=== PATIENT | female | born 1955 | race Caucasian/White ===

== ENCOUNTER 2022-06-26 17:27 | Emergency (ER) | payer MEDICARE, BC ==
[2022-06-26 17:55] VITALS: BP 126/61; PULSE 80
== END 2022-06-26 18:57 | disposition home or self-care (01) ==
LOC: LL.ED 17:27
DX: M25.531 Pain in right wrist (principal); M25.551 Pain in right hip; I10 Essential (primary) hypertension; Z88.1 Allergy status to other antibiotic agents; Z88.8 Allergy status to other drugs, medicaments and biological substances; Z88.5 Allergy status to narcotic agent; Z88.2 Allergy status to sulfonamides; Z79.899 Other long term (current) drug therapy; Z79.01 Long term (current) use of anticoagulants; Z86.73 Personal history of transient ischemic attack (TIA), and cerebral infarction without residual deficits; Z90.49 Acquired absence of other specified parts of digestive tract; W18.39XA Other fall on same level, initial encounter
CPT/HCPCS: 73110-RT; 99283; 99284

== ENCOUNTER 2024-11-04 17:40 | Observation (INO) | payer MEDICARE ==
[2024-11-04] MEDS ORDERED: LEVOCETIRIZINE DIHYDROCHLORIDE PO SCH (18:00)
[2024-11-04 18:51] LABS: BASOPHILS ABSOLUTE AUTO 0.04 K/uL (0.00-0.20); BASOPHILS PERCENT AUTO 0.4 % (0.0-2.0); EOSINOPHILS ABSOLUTE AUTO 0.27 K/uL (0.00-0.50); EOSINOPHILS PERCENT AUTO 2.9 % (0.0-5.0); HEMATOCRIT 40.5 % (34.0-46.0); HEMOGLOBIN 12.8 g/dL (11.7-15.5); IMMATURE GRAN ABSOLUTE AUTO 0.05 10^3/uL (0.00-0.50); IMMATURE GRAN PERCENT AUTO 0.5 % (0.0-5.0); LYMPHOCYTES ABSOLUTE AUTO 1.95 K/uL (0.50-3.50); LYMPHOCYTES PERCENT AUTO 21.1 % (10.0-50.0); MEAN CORPUSCULAR HEMOGLOBIN 29.8 pg (28.2-33.3); MEAN CORPUSCULAR HGB CONC 31.6 g/dL (31.7-36.0); MEAN CORPUSCULAR VOLUME 94.2 fL (84.0-98.0); MONOCYTES ABSOLUTE AUTO 0.58 K/uL (0.00-1.00); MONOCYTES PERCENT AUTO 6.3 % (2.0-14.0); NEUTROPHILS ABSOLUTE AUTO 6.37 K/uL (1.40-7.00); NEUTROPHILS PERCENT AUTO 68.8 % (45.0-80.0); PLATELET COUNT,PLT 486 K/uL (150-350); WHITE BLOOD CELL COUNT,WBC 9.3 K/uL (4.0-10.2)
[2024-11-04 19:11] LABS: INR 1.1 (0.9-1.1); PROTHROMBIN TIME 10.8 SEC (9.0-11.1)
[2024-11-04 19:16] LABS: LACTIC ACID 1.5 mmol/L (0.4-2.0)
[2024-11-04 19:25] LABS: ALANINE AMINOTRANSFERASE,ALT 21 U/L (12-78); ALBUMIN 3.4 g/dL (3.4-5.0); ALKALINE PHOSPHATASE 132 IU/L (46-116); ASPARTATE AMNIOTRANSFERASE,AST 20 U/L (15-37); BILIRUBIN TOTAL 0.2 mg/dL (0.2-1.0); BLOOD UREA NITROGEN,BUN 20 mg/dL (7-18); CALCIUM 10.3 mg/dL (8.5-10.1); CARBON DIOXIDE,CO2 32.8 mmol/L (21.0-32.0); CHLORIDE,CL 100 mmol/L (98-107); CREATININE 1.08 mg/dL (0.51-1.17); GLUCOSE RANDOM 163 mg/dL (70-99); POTASSIUM,K 4.1 mmol/L (3.5-5.1); PRO B-TYPE NATRIUR PEPT,BNPPRO 111 pg/mL (0-125); PROTEIN TOTAL,TP 7.9 g/dL (6.4-8.2); SODIUM,NA 140 mmol/L (136-145)
[2024-11-04 19:28] LABS: ANION GAP 11.3 meq/L (7-15); ESTIMATED GFR 55 mL/min (>=60)
[2024-11-04] MEDS ORDERED: Clobetasol 0.05% Crm 15 GM Tube TOP PRN (20:16)
[2024-11-04] MEDS ORDERED: Non-Formulary Medication 1 Each (Estradiol [Estrace 0.01% Vaginal Crm] 42.5 GM Tube) PRN (20:16)
[2024-11-04] MEDS ORDERED: Non-Formulary Medication 1 Each (Methocarbamol 750 MG Tablet) PO PRN (20:16)
[2024-11-04] MEDS: Apixaban 5 MG Tab PO SCH (21:36)
[2024-11-04] MEDS: Spironolactone 25 MG Tab PO SCH (21:36)
[2024-11-04] MEDS: Montelukast 10 MG Tab PO SCH (21:36)
[2024-11-04] MEDS: Pregabalin 25 MG Cap PO SCH (21:36)
[2024-11-04] MEDS: Acetaminophen 325 MG Tab PO PRN (21:41)
[2024-11-04] MEDS: oxyCODONE 5 MG Tab ONE (21:49)
[2024-11-04] MEDS: Oxybutynin 5 MG Tab ONE (21:49)
[2024-11-04] MEDS: traMADol 50 MG Tab PO PRN (21:50)
[2024-11-04] MEDS: Melatonin 3 MG Tab ONE (21:56)
[2024-11-04] MEDS: Sennosides/Docusate Sodium 50-8.6 MG Tab ONE (22:06)
[2024-11-04] MEDS: Simethicone 125 MG Tab.Chew ONE (22:06)
[2024-11-04] MEDS: Simethicone 125 MG Tab.Chew PO SCH (22:49)
[2024-11-05] MEDS: Fluconazole 100 MG Tab PO SCH (07:40)
[2024-11-05] MEDS: Oxybutynin 5 MG Tab.ER PO SCH (07:40)
[2024-11-05] MEDS: Ascorbic Acid 500 MG Tab PO SCH (07:41)
[2024-11-05] MEDS: Sennosides/Docusate Sodium 50-8.6 MG Tab PO SCH (07:42)
[2024-11-05] MEDS: Polyethylene Glycol 3350 Powder 17 GM Packet PO SCH (07:42)
[2024-11-05] MEDS: Verapamil 180 MG Tab.ER PO SCH ×2 (07:43→19:48)
[2024-11-05] MEDS: Multivitamin Tab PO SCH (07:43)
[2024-11-05] MEDS: Furosemide 20 MG Tab PO SCH (07:43)
[2024-11-05] MEDS: Rosuvastatin 10 MG Tab PO SCH (07:44)
[2024-11-05] MEDS: Albuterol/Ipratropium 3.0-0.5 MG/3 ML Neb Soln NEB SCH (07:44)
[2024-11-05] MEDS: Lactobacillus Rhamnosus GG (Probiotic) Cap PO SCH (07:44)
[2024-11-05] MEDS: Lidocaine 4% 1 each Patch TOP SCH (07:44)
[2024-11-05] MEDS ORDERED: Non-Formulary Medication 1 Each (Azelastine Hcl [Azelastine Hcl] 137 MCG/0.137 ML Spray.Pu NASBOTH SCH (08:00)
[2024-11-05] MEDS ORDERED: Simethicone 125 MG Tab.Chew PO SCH (08:00)
[2024-11-05] MEDS ORDERED: Non-Formulary Medication 1 Each (Biotin [Biotin] 1 MG Tablet) PO SCH (08:00)
[2024-11-05] MEDS ORDERED: Non-Formulary Medication 1 Each (Esomeprazole Magnesium [Esomeprazole Magnesium] 40 MG Cap PO SCH (08:00)
[2024-11-05] MEDS: Docusate Sodium 100 MG Cap PO SCH (19:49)
[2024-11-05] MEDS: Melatonin 3 MG Tab PO SCH (19:49)
[2024-11-05] MEDS ORDERED: Non-Formulary Medication 1 Each (Melatonin [Melatonin] 10 MG Tablet) PO SCH (20:00)
[2024-11-06 09:41] VITALS: BP 122/62; PULSE 75
== END 2024-11-06 16:00 | disposition home or self-care (01) ==
LOC: LL.ED 17:40 → UNDOADMOB 19:10 → LL.MS 19:10 → UNDODISOB 11-06 16:00
PROVIDERS: ADMIT Physician Assistant; ATTEND Physician Assistant
DX: Z74.2 Need for assistance at home and no other household member able to render care (principal); Z98.1 Arthrodesis status; I10 Essential (primary) hypertension; E78.00 Pure hypercholesterolemia, unspecified; K21.9 Gastro-esophageal reflux disease without esophagitis; G89.29 Other chronic pain; Z79.899 Other long term (current) drug therapy; Z88.5 Allergy status to narcotic agent; Z88.8 Allergy status to other drugs, medicaments and biological substances
CPT/HCPCS: 36415; 80053; 83605; 83735; 83880; 85025; 85610; 99223; 99233; 99239; 99284; A9270-GY

== ENCOUNTER 2025-06-13 08:45 | Emergency (ER) | payer MEDICARE ==
[2025-06-13] MEDS ORDERED: Sodium Chloride 0.9% 10 ML Syringe FLUSH PRN (09:00)
[2025-06-13 09:35] LABS: BASOPHILS ABSOLUTE AUTO 0.03 K/uL (0.00-0.20); BASOPHILS PERCENT AUTO 0.4 % (0.0-2.0); EOSINOPHILS ABSOLUTE AUTO 0.09 K/uL (0.00-0.50); EOSINOPHILS PERCENT AUTO 1.2 % (0.0-5.0); IMMATURE GRAN ABSOLUTE AUTO 0.02 10^3/uL (0.00-0.04); IMMATURE GRAN PERCENT AUTO 0.3 % (0.0-0.4); LYMPHOCYTES ABSOLUTE AUTO 1.44 K/uL (0.50-3.50); LYMPHOCYTES PERCENT AUTO 19.7 % (10.0-50.0); MONOCYTES ABSOLUTE AUTO 0.39 K/uL (0.00-1.00); MONOCYTES PERCENT AUTO 5.3 % (2.0-14.0); NEUTROPHILS ABSOLUTE AUTO 5.34 K/uL (1.40-7.00); NEUTROPHILS PERCENT AUTO 73.1 % (45.0-80.0); PLATELET COUNT,PLT 214 K/uL (150-350); RED BLOOD CELL COUNT 5.27 M/uL (3.77-5.09); RED CELL DISTRIBUTION WIDTH 13.8 % (11.2-14.1); WHITE BLOOD CELL COUNT,WBC 7.3 K/uL (4.0-10.2)
[2025-06-13 10:02] LABS: ALANINE AMINOTRANSFERASE,ALT 26 U/L (12-78); ASPARTATE AMNIOTRANSFERASE,AST 19 U/L (15-37); BILIRUBIN TOTAL 0.3 mg/dL (0.2-1.0); BLOOD UREA NITROGEN,BUN 24 mg/dL (7-18); CARBON DIOXIDE,CO2 34.9 mmol/L (21.0-32.0); CHLORIDE,CL 101 mmol/L (98-107); CREATININE 1.10 mg/dL (0.51-1.17); ESTIMATED GFR 53 mL/min (>=60); GLUCOSE RANDOM 153 mg/dL (70-99); POTASSIUM,K 4.6 mmol/L (3.5-5.1); PROTEIN TOTAL,TP 7.4 g/dL (6.4-8.2); SODIUM,NA 140 mmol/L (136-145)
== END 2025-06-13 10:50 | disposition home or self-care (01) ==
LOC: LL.ED 08:45 → SUPCPDRO 08:45 → LL.ED 10:50
DX: S00.83XA Contusion of other part of head, initial encounter (principal); I10 Essential (primary) hypertension; E78.00 Pure hypercholesterolemia, unspecified; Z90.49 Acquired absence of other specified parts of digestive tract; Z90.710 Acquired absence of both cervix and uterus; Z88.1 Allergy status to other antibiotic agents; Z88.2 Allergy status to sulfonamides; Z88.5 Allergy status to narcotic agent; Z88.8 Allergy status to other drugs, medicaments and biological substances; Z79.01 Long term (current) use of anticoagulants; Z79.899 Other long term (current) drug therapy; W06.XXXA Fall from bed, initial encounter; Y92.019 Unspecified place in single-family (private) house as the place of occurrence of the external cause
CPT/HCPCS: 36415; 70450; 72125; 73110-RT; 80053; 83735; 85025; 99284; A9270-GY